=== PATIENT | female | born 1975 | race Caucasian/White ===

== ENCOUNTER 2016-04-27 14:17 | Emergency (ER) | END 2016-04-27 18:34 | disposition home or self-care (01) | DX: L97.521 Non-pressure chronic ulcer of other part of left foot limited to breakdown of skin (principal); S63.612A Unspecified sprain of right middle finger, initial encounter; F17.210 Nicotine dependence, cigarettes, uncomplicated; S90.812A Abrasion, left foot, initial encounter; Y04.0XXA Assault by unarmed brawl or fight, initial encounter | CPT/HCPCS: 29130; 73140; 73630; Z7502 ==